=== PATIENT | female | born 1985 | race Caucasian/White ===

== ENCOUNTER 2016-07-25 20:04 | Emergency (ER) | payer BC ==
[2016-07-25 20:20] VITALS: RESP 22
[2016-07-25] MEDS ORDERED: ONDANSETRON 4 MG/2 ML VIAL IVP ONE (20:22)
[2016-07-25] MEDS ORDERED: KETOROLAC 30 MG/1 ML VIAL IVP ONE (20:22)
[2016-07-25] MEDS ORDERED: Sodium Chloride 0.9% 1,000 ML PRIMARY IV ONE (20:22)
--- NOTE | 2016-07-25 20:28 | PDOC ---
Gen Adult / Medical Screen HPI - General Chief Complaint: General Medical Stated Complaint: Persistant Cough/Sore Throat Date Seen by Provider: 07/25/16 Time Seen by Provider: 20:24 Source: POSITIVE: Patient Exam Limitations: POSITIVE: No limitations Nurse's Notes Reviewed & Considered: Yes - Indicators Temperature Between 95 and 101 Degrees: Yes Respirations Between 12 and 20: Yes Blood Pressure Between 100-165 (sys) and 60-100 (hill): Yes Pulse Range Between 60-105 (100 for age > 60 years): No (115) Severe Pain (Greater than 5/10 Reported): No Chest or Abdominal Pain: No Inability to Walk: No Pt Reports Active High Risk Cond. (TB/Hepatitis/HIV/Chemo): No Abnormal Mental Status: No - History of Present Illness Initial Comments: The patient comes in today with chief complaint of sore throat, cough, chills, runny nose, and shortness of breath. She did have an episode of diarrhea yesterday. She had an episode of emesis earlier today. She states she had to make herself follow-up because of her nausea. She states she slept from 10 AM until 6 PM today and still feels exhausted. Body Location Affected: REPORTS: Chest Timing: REPORTS: Upon Awakening, Getting Worse Duration: <24 hours Similar Symptoms Previously: No Recent Care Received: REPORTS: Denies Any Prior Injuries Related to Current Complaint?: No - Patient Allergies Allergies/Adverse Reactions: Allergies Allergy/AdvReac Type Severity Reaction Status Date / Time No Known Allergies Allergy Verified 07/25/16 20:11 Past Medical History - heen HEENT History: Denies History Cardiovascular History: Denies History Respiratory History: Denies History Gastrointestinal History: Denies History Genitourinary History: Denies History Endocrine History: Denies History Musculoskeletal History: Denies History Prosthesis or Implant: No Neurological History: Denies History Blood Disorders: Denies History Psychiatric History: Depression History of Sexually Transmitted Diseases: No Female Reproductive History: Denies History Obstetrical History: Delivery Cancer History: Denies History In Past Year Been Physically Harmed or Verbally Threatened: No History of MDRO: No History of Other Communicable Diseases: No Tobacco Use: Never Smoker Alcohol Use: Rarely Substance Use Type: None Previous Surgical History: Yes Type / Date of Surgery: x2 Anesthesia Reactions: No Malignant Hyperthermia: No Significant Family History: Cancer ROS - Limitations ROS Limitations: No Limitations Constitution: REPORTS: Chills, Fever, Diaphoresis Cardiovascular: REPORTS: Heart Racing Respiratory: REPORTS: Cough Non Productive, Shortness Of Breath Neurological: REPORTS: Headache Gastrointestinal: REPORTS: Abdominal Pain, Nausea, Vomitting, Diarrhea Endocrine: REPORTS: Fatigue Musculoskeletal: REPORTS: Muscle Aches Genitourinary: REPORTS: Denies Symptoms Eyes: REPORTS: Itching Eyes, Eye Drainage ENT: REPORTS: Congestion, Nasal Drainage, Sore Throat Skin: REPORTS: Denies Skin Symptoms Lympathic: REPORTS: Swollen Glands (Of her neck) Immunologic: POSITIVE: Denies Symptoms Psychiatric: POSITIVE: Denies Psych Symptoms Gen Adult/Medical Screen Exam - General Appearance General Appearance: POSITIVE: Alert, No Evidence of Trauma, Moderate Distress - HEENT HEENT: POSITIVE: Head Inspection Nml, Eyes Inspection Nml, Nose Inspection Nml, Oral/Dental Inspect. Nml, PERRL, EOMI, Pharyngeal Erythema, Pharyngeal Exudate, Clear Nasal Drainage - Pupils Pupil Size: 4 mm: Bilateral - Neck Neck: POSITIVE: Thyroid Normal, Lymphadenopathy - Respiratory Respiratory: POSITIVE: No Respiratory Distress, Breath Sounds Normal, Chest Non- Tender - Cardiovascular Cardiovascular: POSITIVE: No Murmur, No Gallop, PMI Normal, Tachycardia - Abdomen Abdomen: Soft: (All Quadrants), Normal Bowel Sounds: (All Quadrants), Denies Tenderness: (All Quadrants) - Back Back: POSITIVE: Normal Inspection - Neurological / Psychological Mental Status: POSITIVE: Mood Normal, Affect Normal Orientation: POSITIVE: Oriented x 3 - Skin Skin: POSITIVE: Normal Color, Warm, Dry, No Rash - Extremities Extremity: Non-Tender: (All Extremities), Normal ROM: (All Extremities), Normal Inspection: (All Extremities) Procedures - Laceration/Wound Repair Did patient have a laceration repair: No Gen Adlt/Medical Scrn Progress - Results Reviewed by me Xrays/CTs/US Reviewed by me: Yes Discussed with Radiologist: No Lab Results Reviewed: Yes Lab Results:: Laboratory Results 07/25/16 Range/Units 20:49 WBC 26.73 H (4.8-10.8) 10^3/uL RBC 4.96 (4.20-5.40) 10^6/uL Hgb 14.3 (12.0-16.0) g/dL Hct 41.0 (37.0-47.0) % MCV 82.7 (81-99) FL MCH 28.8 (27-31) PG MCHC 34.9 (33-37) g/dL RDW Std Deviation 37.8 L (39-50) fL RDW Coeff of Paco 12.8 (11.5-14.5) % Plt Count 283 (140-350) 10*3/uL MPV 10.9 (7.4-12.2) FL Immature Gran % (Auto) 0.3 (0-5) % Neut % (Auto) 91.4 H (50-80) % Lymph % (Auto) 4.2 L (10-50) % [place] % (Auto) 4.1 L (5-15) % Eos % (Auto) 0 (0-8) % Baso % (Auto) 0 (0-1) % Immature Gran # (Auto) 0.09 10*3/UL Neut # (Auto) 24.41 10*3/UL Lymph # (Auto) 1.12 10*3/uL [place] # (Auto) 1.10 H (0.3-0.8) 10*3/UL Eos # (Auto) 0 10*3/UL Baso # (Auto) 0.01 10*3/UL WBC Morphology Comment See comments (NORM) Plt Morphology Comment Normal morphology (NORM) RBC Morph Comment Normal morphology (NORM) Sodium 131 L (135-145) meq/L Potassium 3.7 L (3.8-5.2) meq/L Chloride 101 (98-112) meq/L Carbon Dioxide 20 L (23-33) meq/L Anion Gap 10 (5-20) BUN 8 (7-22) mg/dL Creatinine 0.6 (0.50-1.20) mg/dL Estimated GFR > 60 (>60 ml/min/1.73m(2)) BUN/Creatinine Ratio 13.33 (6-20) Glucose 113 H (78-110) mg/dL Calculated Osmolality 270.0 (267-292) mOsm/kg Lactic Acid 1.1 (0.70-2.10) MMOL/L Calcium 9.0 (8.7-10.7) mg/dL Magnesium 1.5 L (1.6-2.4) mg/dL Total Bilirubin 0.7 (0.3-1.2) mg/dL AST 18 (8-39) IU/L ALT 26 (9-52) IU/L Alkaline Phosphatase 99 (38-126) IU/L Total Protein 7.6 (6.1-8.0) g/dL Albumin 4.0 (3.5-4.8) g/dL Globulin 3.6 (2.50-4.10) g/dL Albumin/Globulin Ratio 1.10 L (1.3-2.0) mg/g Monoscreen Negative (NEG) - Patient's Progress Pain Medication Addressed: POSITIVE: Yes Re-Examine Time: 22:09 Status: POSITIVE: Improved MDM / ED Course: Patient was examined, an IV started, blood drawn and sent to the lab for studies , chest x-ray was obtained. Patient received a liter of normal saline, Toradol , Zofran, Bicillin, and Tylenol. Her fever improved and her body aches improved. Findings: White count is elevated greater than 26, compensated metabolic panel is unremarkable, rapid strep is positive, Cidra and influenza are negative, chest x-ray shows no acute cardiopulmonary decompensation per my interpretation. Assessment: Strep a pharyngitis Plan: Discharge home, Tylenol and ibuprofen alternated every 3 hours, saltwater gargles, may return to work when no fevers for 48 hours. - Consult Counseled: POSITIVE: Patient, RE: Lab Results, RE: Radiology Results, RE: DX Patient Care Time - Estimated PCT Patient Care Time (In Minutes): 30 Vital Signs - Recent Vital Signs Vital Signs: Vital Signs (Last 8 hours) Temp Pulse Resp BP Pulse Ox 07/25/16 21:41 103.3 F H 07/25/16 20:07 101.5 F H 126 H 22 127/86 93 - VS Reviewed Vital Signs Reviewed: Yes Discharge Clinical Impression: Acute streptococcal pharyngitis Discharge Disposition: Discharged to Home Condition: Stable Patient Instructions Given at Discharge: Strep Throat (ED)
[2016-07-25] MEDS ORDERED: PENICILLIN G 1,200,000 UNIT/2 ML SYRINGE IM ONE (20:33)
[2016-07-25 20:56] LABS: BASOPHILS # (AUTO) 0.01 10*3/UL; BASOPHILS % (AUTO) 0 % (0-1); EOSINOPHILS # (AUTO) 0 10*3/UL; EOSINOPHILS % (AUTO) 0 % (0-8); HEMOGLOBIN 14.3 g/dL (12.0-16.0); LYMPHOCYTES # (AUTO) 1.12 10*3/uL; MEAN CORPUSCULAR HEMOGLOBIN 28.8 PG (27-31); MEAN CORPUSCULAR HGB CONC 34.9 g/dL (33-37); MEAN CORPUSCULAR VOLUME 82.7 FL (81-99); MEAN PLATELET VOLUME 10.9 FL (7.4-12.2); MONOCYTES % (AUTO) 4.1 % (5-15); NEUTROPHILS # (AUTO) 24.41 10*3/UL; NEUTROPHILS % (AUTO) 91.4 % (50-80); RED BLOOD COUNT 4.96 10^6/uL (4.20-5.40)
[2016-07-25] MEDS ORDERED: Prometh/Codeine Liquid 10/6.25 MG/5 ML ORAL.SYRIN PO ONE (20:58)
[2016-07-25] MEDS ORDERED: ACETAMINOPHEN 325 MG TABLET PO ONE (20:58)
[2016-07-25] MEDS ORDERED: ACETAMINOPHEN 500 MG TABLET PO ONE ×2 (21:00→21:03)
[2016-07-25 21:03] LABS: BLOOD UREA NITROGEN 8 mg/dL (7-22); BUN/CREATININE RATIO 13.33 (6-20); EST GLOMERULAR FILTRATION > 60 (>60 ml/min/1.73m(2)); MAGNESIUM 1.5 mg/dL (1.6-2.4)
[2016-07-25 21:23] LABS: PLATELET MORPHOLOGY COMMENT NORMAL MORPHOLOGY (NORM); RBC MORPHOLOGY COMMENT NORMAL MORPHOLOGY (NORM); WBC MORPHOLOGY COMMENT SEE COMMENTS (NORM)
[2016-07-25 22:16] LABS: CLARITY,URINE CLEAR (CLEAR); COLOR,URINE YELLOW; GLUCOSE, URINE (UA) NEGATIVE (NEG); PH,URINE 5.5 (5.0-8.5); PROTEIN,URINE NEGATIVE (NEG); URINE SAMPLE TYPE CLEAN CATCH URINE
[2016-07-25 22:17] LABS: BACTERIA,URINE RARE; BILIRUBIN,URINE NEGATIVE (NEG); NITRATE,URINE NEGATIVE (NEG); OCCULT BLOOD,URINE SMALL (NEG); SQUAMOUS EPITHELIAL CELL,UR RARE; UROBILINOGEN,URINE 0.2 EU/dL (0.2)
[2016-07-25 22:42] VITALS: TEMP 98.2
--- NOTE | 2016-07-26 09:43 | DI ---
PA /LATERAL CHEST X-RAY, 07/25/2016 8:22 PM : Clinical History: Cough and fever Previous Exam: None at this facility. There is no acute soft tissue or bony abnormality. Heart size is normal. Lungs are clear. Mediastinal structures are normal. There are no pulmonary nodules. IMPRESSION: Normal chest x-ray.
== END 2016-07-25 22:26 | disposition home or self-care (01) ==
LOC: ER 20:04
DX: J02.0 Streptococcal pharyngitis (principal); R06.02 Shortness of breath; R19.7 Diarrhea, unspecified; R11.2 Nausea with vomiting, unspecified; R05 Cough
CPT/HCPCS: 36415; 71020; 80053; 81001; 81003; 83605; 83735; 85025; 86308; 87802; 87804; 96361; 96372; 96374; 96375; 99283 ×2; J0561; J1885; J2405; J7030

== ENCOUNTER 2017-07-27 05:57 | Inpatient (IN) ==
[2017-07-27] MEDS ORDERED: Famotidine Inj 20 MG in Normal Saline Flush 10 ML IVP ONE (06:07)
[2017-07-27] MEDS ORDERED: CITRIC ACID/SODIUM CITRATE 30 ML CUP PO ONE (06:07)
[2017-07-27] MEDS ORDERED: Metoclopramide Inj 10 MG/2 ML VIAL IV ONE (06:07)
[2017-07-27] MEDS ORDERED: NORMAL SALINE 10 ML SYRINGE FLUSH IVP PRN ×2 (06:07→07:15)
[2017-07-27] MEDS ORDERED: Lactated Ringers 1,000 ML PRIMARY IV ONE ×2 (06:07→08:18)
[2017-07-27] MEDS ORDERED: LIDOCAINE HCL 2 % 10 ML JELLY URO-JECT TOPICAL PRN (06:07)
[2017-07-27] MEDS ORDERED: LIDOCAINE W/ SODIUM BICARB 0.5 ML SYR SUBD PRN ×2 (06:07→07:15)
[2017-07-27] MEDS ORDERED: CefOXitin Inj 2 GM in Sodium Chloride 0.9% 100 ML IV ONE (06:07)
[2017-07-27] MEDS ORDERED: Lactated Ringers 1,000 ML PRIMARY IV SCH ×2 (06:15→07:15)
[2017-07-27] MEDS ORDERED: Oxytocin 20 Units + LR 20 UNIT/1,000 ML BAG IV SCH ×2 (06:15→10:36)
[2017-07-27 06:57] LABS: Hematocrit [HCT] 36.5 % (37.0-47.0); Hemoglobin [HGB] 12.1 g/dL (12.0-16.0); MEAN CORPUSCULAR HEMOGLOBIN 26.5 PG (27-31); MEAN CORPUSCULAR HGB CONC 33.2 g/dL (33-37); MEAN CORPUSCULAR VOLUME 79.9 FL (81-99); MEAN PLATELET VOLUME 10.9 FL (7.4-12.2); RED BLOOD COUNT 4.57 10^6/uL (4.20-5.40)
[2017-07-27] MEDS ORDERED: PROMETHAZINE 25 MG/1 ML VIAL IM PRN (07:15)
[2017-07-27] MEDS ORDERED: HYDROmorphone 2 MG/1 ML IVP PRN (07:15)
[2017-07-27] MEDS ORDERED: fentaNYL Inj 100 MCG/2 ML VIAL IVP PRN (07:15)
[2017-07-27] MEDS ORDERED: MORPHINE SULFATE/PF 10 MG/10 ML AMPULE ONE (07:19)
[2017-07-27] MEDS ORDERED: ePHEDrine Inj 50 MG/ML AMP ONE (07:21)
[2017-07-27] MEDS ORDERED: OXYTOCIN 10 UNIT/1 ML ONE (07:21)
--- NOTE | 2017-07-27 09:56 | CRNA.PROCE ---
Central Neuraxis Block Placemt - - Safety Measures: Time Out Taken, Site Verified - - Type of Block: Subarachnoid Reason for Block: Surgical Moniters Used During Block: EKG, SPO2, NIBP (SAB placed in OR prior to procedure ) Skin Prep Used: Betadine Draped: Yes Skin Infiltration - Enter Amount Used in Comment Field: 1% Xylocaine (mL): Yes ( wheal) Spinal Needle Used: 22 Radha 120 mm (At approx L3-4, body habitus makes landmarks difficult to asses. 1st pass with introducer and 25ga radha. Bone encountered. Switched to a 22sprotte and clear csf obtained on 2nd pass.) Local Anesthetic - Enter Amount Used in Comment Field: 0.75 % Bupivacaine with Dextrose (ml): Yes (15mg) Additive Used - Enter Amount Used in Comment Field: Preservative Free Morphine ( mg): Yes (0.15) Anesthesia Time - Other Weight: 122.47 kg Height: 5 ft 5 in Body Mass Index (BMI): 44.9
--- NOTE | 2017-07-27 09:57 | CRNA.PROGR ---
Anesthesia Recovery Phase I - Post Anesthesia Evaluation Patient's Condition on Arrival in Phase I: Stable Pain Level: 0
--- NOTE | 2017-07-27 09:58 | CRNA.PROGR ---
Anesthesia Time - - Start date: 07/27/17 End date: 07/27/17 - Procedure/Recovery Time Anesthesia : Time In: 07:51 Anesthesia : Time Out: 09:42 Anesthesia : Total Time: 111 - Total Anesthesia Time Total Anesthesia Time (minutes): 111 - Other Weight: 122.47 kg Height: 5 ft 5 in Body Mass Index (BMI): 44.9 Physical Status: P3 Anesthesia Type: Spinal Block (repeat c section)
--- NOTE | 2017-07-27 10:03 | OB.OP.NOTE ---
Operative Report Surgeon: Justus Ship Liner: Rashid Draper MD Anesthesia Type: Regional (With Duramorph) Anesthesia Provider: Mateusz Iniguez CRNA Surgery Date: 07/27/17 Preoperative Diagnosis: IUP 39 weeks, previous section 2, satisfied parity, obesity. Patient desires repeat section and bilateral tubal ligation Postoperative Diagnosis: Same Procedure: Repeat low transverse section. Bilateral tubal ligation using Filshie clips Estimated Blood Loss (mL): 600 Fluids: 3000 cc LR and Pitocin. Mefoxin 2 g IV preoperatively. Urine 300 mL clear yellow Complications: None apparent Findings at Surgery: Normal ovaries and fallopian tube. Male infant with Apgars 9 and 10 weighing 7 lbs. 2 oz. Arterial blood gas showed a pH of 7.379, PCO2 37.1, base excess of -3, HCO3 21.9 Indications for the Procedure: The patient is a 31-year-old at 39 weeks gestation with history of C- section 2 who desires repeat section and bilateral tubal ligation. Patient has a posterior placenta Description of Procedure: The patient was taken to the operating room after the risks, benefits, alternatives and indication of a repeat section and bilateral tubal ligation were discussed with patient in detail and consent forms were signed previously. The morning of the procedure the patient still wanted the repeat section and the bilateral tubal ligation. The patient had satisfied parity. The patient was brought to the operating room. The patient underwent spinal anesthesia with Duramorph and uncomplicated fashion. The patient was then placed in the dorsal supine position with a leftward tilt. Reinoso catheter was placed sterilely. SCDs were placed on both lower legs. Attention was turned to the patient's abdomen and the patient's previous Pfannenstiel skin incision was in the crease of her pannus fold. Therefore I decided that I should make my Pfannenstiel incision slightly superior to that. I demarcated the area that I wanted to make my incision and then I actually taped the patient's abdomen up carefully to elevate the patient's pannus. Patient was then prepped and draped sterilely. The patient was then tested and anesthesia was found to be excellent. A Pfannenstiel skin incision was made superior to the old Pfannenstiel incision by several centimeters. I worked my way through the subcutaneous tissue which was about 8-10 cm in depth. The fascia was then nicked in the midline and extended bilaterally using the Bovie and elevating the fascia off of the rectus muscles using the Yankauer as a retractor. [place] clamps were placed on the fascia superiorly on either side of the midline and the rectus muscles were dissected off both bluntly and with the Bovie. The same was done on the inferior aspect of the fascia with cokers on either side of the midline and the rectus muscles were dissected off both bluntly and with the Bovie. On the patient's left side there was some scarring laterally between the fascia and the rectus muscles and the epigastric vessel was actually incised and bleeding occurred. Initial Bovie did not allow for hemostasis and then I placed a [id number] suture around the superior and inferior aspect of the epigastric vessel and there was good hemostasis. The vessel did not appear to retract during this process. After the 2 weohsn-ei-esbif sutures with 0 Vicryl suture was applied, there was good hemostasis and no bleeding. There was some scarring in the midline but this was taken down placing my digits underneath the scar tissue and Bovie unit. We were then able to enter the peritoneum picking up the peritoneum with Fatuma's and then actually entering bluntly. The peritoneum was then stretched. A hand was placed intra-abdominally along the uterus and there were no lesions from the anterior abdominal wall. The Tomas retractor was placed intra-abdominally and set in place. The bladder reflection was noted and I made a low transverse uterine incision above the bladder reflection or superior to the bladder reflection in an arc. The membranes were identified and then the membranes were ruptured and there was clear amniotic fluid. The uterine incision was extended initially bluntly and then with bandage scissors. I then placed my hand intrauterine along the baby's head since the baby was in the cephalic presentation and delivered the baby's head and the mouth and nose were bulb suctioned. A body cord was noted but there was not a nuchal cord. The posterior shoulder was then delivered with fundal pressure. Then the infant was delivered. Delayed cord clamping of about 30 seconds was allowed for. The cord was then clamped and cut and the baby was handed off to the waiting nurses and Dr. Issa. A section of cord was obtained for cord gases and the results are above. Cord blood was then obtained. The placenta was removed with uterine massage and traction on the umbilical cord gently. Trailing membranes were removed with a ring forcep. The uterus was then exteriorized and the uterine cavity was cleared of all clot and debris 3 times. There was good hemostasis. The uterine incision was then closed with 0 Vicryl suture in a running locking fashion starting from the left side and working to the right side. There were not any extensions that were significant of the uterine incision. There was one area with slight bleeding in the middle of the incision and a xlyldy-rw-icdej suture was placed and hemostasis was allow for. The ovaries and fallopian tubes were identified. There were significant vessels running along the fallopian tube so I decided to use Filshie clips instead of a partial salpingectomy or complete salpingectomy. Filshie clip was placed on the right fallopian tube about 3 cm from the cornua and a Filshie clip was placed on the left fallopian tube about 3-4 cm from the cornua secondary to the vascularity along the fallopian tube. The uterine incision was examined again and there was good hemostasis. Irrigation posterior to the uterus was completed and suctioned. Was clear. The uterus was then placed back in the abdomen ensuring that the Filshie clips date of place and there was good hemostasis. The right gutter was irrigated and suctioned. The left gutter was then irrigated and then suctioned. The uterine incision was examined again and irrigated and then suctioned and there appeared to be good hemostasis of the uterine incision. There was also good approximation of the uterine incision. The peritoneum was then closed using 3-0 Vicryl suture. A FISH retractor had to be used to retract the omentum that was adhesed to the peritoneum. Also there was one area of omentum that was bovied to allow the omentum to be free instead of adhesed to the other side with the possibility of her hernia through the omentum. There were no significant vessels in this area that was bovied to allow the omentum to be free. There was no bowel. The peritoneum was then closed methodically. The fascia and subfascial area was then irrigated. The area on the patient's left side that bled when the epigastric vessel was disturbed was completely hemostatic. Irrigation was completed and then there was good hemostasis noted again. Looped 0 PDS was then used to close the fascia starting on the patient's left side and working to the patient's right side. The angle of the fascia the patient's right side was grasped with a Marge initially to identify it as the fascia was closed. The looped 0 PDS closed the fascia and there appeared to be good hemostasis and a good closure of the fascia with both layers of fascia sutured. The subcutaneous tissue was then irrigated and a few areas were bovied. Subcutaneous tissue was closed in 2 layers using 3-0 Vicryl suture. Secondary to the patient's obesity, I decided to close the skin using metal lucian to allow for some drainage of the subcutaneous area. Not blood but just drainage. A Silverlon dressing was applied over the incision and then an ABD had and then the dressing was taped with paper tape. The drape was then removed and I place new gloves and then the uterus was expressed of any clot and debris with some fundal pressure and then 2 digits with sterile glove in the patient's vagina. The cervix was noted to be just a fingertip. The fundus was firm with massage. Patient tolerated this very well. The Reinoso catheter was replaced because it had appeared that urine leaked around the Reinoso catheter. Her was 300 mL of clear yellow urine but the Reinoso catheter was replaced. The patient was brought to the PACU in stable condition. Please see my orders. Plan: Please see my orders.
[2017-07-27] MEDS ORDERED: CALCIUM CARBONATE 500 MG (TUMS) CHEWABLE TABLET PO PRN (10:36)
[2017-07-27] MEDS ORDERED: Nalbuphine Inj 20 MG/ML Ampule IVP PRN (10:36)
[2017-07-27] MEDS ORDERED: LANOLIN HPA 40 GM TUBE TOPICAL PRN (10:36)
[2017-07-27] MEDS ORDERED: DIPH,PERTUSS,TET(ADACEL) VAC/PF 0.5 ML (Tdap) IM ONE (10:36)
[2017-07-27] MEDS ORDERED: Naloxone Inj 0.01 MG, Sodium Chloride 0.9% vial 1 ML IVP PRN ×2 (10:36)
[2017-07-27] MEDS ORDERED: Famotidine Inj 20 MG in Normal Saline Flush 10 ML IVP PRN (10:36)
[2017-07-27] MEDS ORDERED: diphenhydrAMINE 50 MG/1 ML VIAL IV PRN (10:36)
[2017-07-27] MEDS ORDERED: ONDANSETRON 4 MG/2 ML VIAL IVP PRN (10:36)
[2017-07-27] MEDS ORDERED: diphenhydrAMINE 25 MG CAPSULE PO PRN (10:36)
[2017-07-27] MEDS: NORMAL SALINE 10 ML SYRINGE FLUSH IVP PRN ×2 (11:50→18:04)
[2017-07-27] MEDS: KETOROLAC 15 MG/1 ML VIAL IVP SCH ×2 (11:50→18:04)
--- NOTE | 2017-07-27 16:35 | OB.PROGRES ---
Subjective Post Op Day: 0 Pain Management: spinal with Duramorph Reinoso Catheter: Yes Flatus: No Diet: Regular Feeding Method: Exculsively Ambulating: Yes Concerns / Additional Information: The patient has been up but not really ambulating yet. Objective - General General Appearance: POSITIVE: No Acute Distress, Cooperative Assesstment / Plan Assessment / Plan: Post op day #0 status post repeat section and bilateral tubal ligation using Filshie clips. The patient's vitals are good. She has not been tachycardic. Her urine output is 40 mL/h. Most likely she is third spacing some fluid. The urine is yellow and clear. Plan: Continue to observe the patient If the patient is doing well tomorrow morning, I will start the patient on Lovenox 60 mg subcutaneous twice a day during the hospitalization along with her SCDs. This is to help prevent SCDs the patient's BMI was greater than 40 at the new OB visit. I discussed with the patient and the patient expressed understanding.
[2017-07-27] MEDS: D5-LR 1,000 ML PRIMARY IV SCH (18:01)
[2017-07-28] MEDS: KETOROLAC 15 MG/1 ML VIAL IVP SCH ×2 (05:04)
[2017-07-28 05:23] LABS: Hematocrit [HCT] 32.9 % (37.0-47.0); Hemoglobin [HGB] 10.6 g/dL (12.0-16.0); MEAN CORPUSCULAR HEMOGLOBIN 26.2 PG (27-31); MEAN CORPUSCULAR HGB CONC 32.2 g/dL (33-37); MEAN CORPUSCULAR VOLUME 81.4 FL (81-99); MEAN PLATELET VOLUME 11.2 FL (7.4-12.2); RED BLOOD COUNT 4.04 10^6/uL (4.20-5.40)
[2017-07-28] MEDS: D5-LR 1,000 ML PRIMARY IV SCH (07:14)
[2017-07-28] MEDS: Prenatal Multivitamin Tab 1 TAB TAB PO SCH (09:06)
[2017-07-28] MEDS: DOCUSATE 100 MG CAPSULE PO SCH ×2 (09:06→21:11)
--- NOTE | 2017-07-28 09:41 | OB.PROGRES ---
Subjective Post Op Day: 1 Pain Management: IV Toradol and Duramorph from spinal yesterday Reinoso Catheter: No Diet: Regular [place] Feeding Method: / Bottle Ambulating: Yes Concerns / Additional Information: Positive flatus. Patient feels okay. Objective - General General Appearance: POSITIVE: No Acute Distress, Cooperative - Cardiovacular Cardiovascular Exam: POSITIVE: RRR Edema: +1 Pedal Edema Extremities: Negative Carlotta's - Bilaterally - Respiratory Respiratory Exam: POSITIVE: Clear to Auscultation - Bilaterally - Abdomen Bowel Sounds: Present Abdominal Wound Assessment: Silverlone Dressing, Well Approximated - Fundus/Lochia/Perineum Uterus Consistency: Firm Assesstment / Plan Assessment / Plan: Assessment: Postoperative day #1 status post repeat section and bilateral tubal ligation using Filshie clip. Patient has BMI of 44 and BMI at the new OB was 41. With the patient having a section, the patient is at increased risk for DVT. The patient is receiving sequential compression devices but I will also order Lovenox. Lovenox falling be given while the patient is in the hospital. Postop H&H 10 and 32 and platelets are normal. Plan: Continue to observe Lovenox 60 mg subcutaneous twice a day while in the hospital
[2017-07-28] MEDS ORDERED: ENOXAPARIN SODIUM 60 MG/0.6 ML SYRINGE SUBCUT SCH (09:45)
[2017-07-28] MEDS: oxyCODONE-ACETAMINOPHEN 5-325 TAB PO PRN ×4 (10:35→21:33)
[2017-07-28] MEDS: ENOXAPARIN SODIUM 60 MG/0.6 ML SYRINGE SUBCUT SCH ×2 (11:09→23:48)
[2017-07-28] MEDS: IBUPROFEN 800 MG TABLET PO PRN ×2 (11:10→21:34)
--- NOTE | 2017-07-28 13:12 | CRNA.PROGR ---
Anesthesia Note - Progress Notes Anesthesia Progress Note: Sitting up in bed holding her baby and visiting with spouse. Discussed anesthetic course and she has no questions or concerns regarding her anesthetic care. Laboratory Results 07/28/17 Range/Units 04:50 WBC 11.35 H (4.8-10.8) 10^3/uL RBC 4.04 L (4.20-5.40) 10^6/uL Hgb 10.6 L (12.0-16.0) g/dL Hct 32.9 L (37.0-47.0) % MCV 81.4 (81-99) FL MCH 26.2 L (27-31) PG MCHC 32.2 L (33-37) g/dL RDW Std Deviation 40.5 (39-50) fL RDW Coeff of Paco 14.0 (11.5-14.5) % Plt Count 205 (140-350) 10*3/uL MPV 11.2 (7.4-12.2) FL Vital Signs (24 hrs) Temp Pulse Pulse Resp BP BP Pulse Ox 07/28/17 10:08 97.8 F 20 119/73 94 07/28/17 05:00 80 20 109/68 94 07/28/17 03:30 94 07/28/17 01:00 98.2 F 89 18 110/64 95 07/27/17 21:00 97.6 F 87 20 110/77 96 07/27/17 20:10 78 07/27/17 15:30 97.9 F 76 16 108/79 98
[2017-07-29] MEDS: oxyCODONE-ACETAMINOPHEN 5-325 TAB PO PRN ×2 (03:55→07:18)
[2017-07-29 03:58] VITALS: RESP 16
[2017-07-29] MEDS: IBUPROFEN 800 MG TABLET PO PRN (07:17)
[2017-07-29] MEDS: DOCUSATE 100 MG CAPSULE PO SCH (08:34)
[2017-07-29] MEDS: Prenatal Multivitamin Tab 1 TAB TAB PO SCH (08:34)
[2017-07-29 09:20] VITALS: TEMP 36.8; O2SAT 96
[2017-07-29 10:18] VITALS: BP 127/84
--- NOTE | 2017-07-29 10:44 | OB.PROGRES ---
Subjective Post Op Day: 2 Pain Management: PO Reinoso Catheter: No Flatus: Yes Diet: Regular Feeding Method: / Bottle Ambulating: Yes Concerns / Additional Information: The patient states she feels well. No nausea. Percocet helps her pain. She is pleased. The patient would like to go home. Objective - General General Appearance: POSITIVE: No Acute Distress, Cooperative - Cardiovacular Cardiovascular Exam: POSITIVE: RRR Edema: +1 Pedal Edema Extremities: Negative Carlotta's - Bilaterally - Respiratory Respiratory Exam: POSITIVE: Clear to Auscultation - Bilaterally - Abdomen Bowel Sounds: Present Abdominal Wound Assessment: Silverlone Dressing, Well Approximated Other Abdominal Exam Details: Slight bruising superior to the incision in the midline. Positive bruising right lateral abdominal wall-sites of Lovenox injection Assesstment / Plan Assessment / Plan: Assessment: Postoperative day #2 status post repeat transverse section and bilateral tubal ligation using Filshie clips. Patient's postop H&H is 10 and 32. The patient is at slight increased risk for DVT and patient has been receiving SCDs plus Lovenox 60 mg subcutaneous twice a day. The patient is doing well and would like to go home. Plan: Discharge from hospital today Discharge medications as follows: Oxycodone/Tylenol 5/325 one to 2 tablets by mouth every 6 hours when necessary pain #30 and no refills Ibuprofen 800 mg 1 tablet by mouth with food or milk 3 times a day for 5 days then 3 times a day as needed. Colace 100 mg capsule 1 capsule by mouth twice a day when necessary constipation Multivitamin 1 tablet by mouth daily The patient should return next week to have Silverlon dressing removed and half- inch Steri-Strips placed over incision. This appointment will be a nurse's visit on: Next Tuesday or Tuesday. The patient should be given the usual precautions. If the patient Silverlon dressing starts to peel off, the patient should have the entire dressing removed. The patient may present to labor and delivery for this or contact the clinic.
--- NOTE | 2017-07-29 10:55 | DCSUMMARY ---
Hospitalization Summary Admit Date: 07/27/17 Discharge Date: 07/29/17 Primary Diagnosis:: IUP 39 weeks with previous section 2 Secondary Diagnosis:: Satisfied parity with desired permanent sterilization BMI of 44 Primary Surgery and Date: 07/27/2017. Repeat low transverse section and bilateral tubal ligation using Filshie clips Delivery Type: Hospital Course: Patient was admitted on 07/27/2017 and underwent repeat section and bilateral tubal ligation using Filshie clips. The patient was started on Lovenox 24 hours after surgery at the dose of 60 mg subcutaneous twice a day. On postoperative day #2, the patient was doing well and desiring to go home. She was breast and supplementing with bottle feeding. The patient's postop H&H was 10 and 32. Assessment: Postoperative day #2 status post repeat transverse section and bilateral tubal ligation using Filshie clips. Patient's postop H&H is 10 and 32. The patient is at slight increased risk for DVT and patient has been receiving SCDs plus Lovenox 60 mg subcutaneous twice a day. The patient is doing well and would like to go home. Plan: Discharge from hospital today Discharge medications as follows: Oxycodone/Tylenol 5/325 one to 2 tablets by mouth every 6 hours when necessary pain #30 and no refills Ibuprofen 800 mg 1 tablet by mouth with food or milk 3 times a day for 5 days then 3 times a day as needed. Colace 100 mg capsule 1 capsule by mouth twice a day when necessary constipation Multivitamin 1 tablet by mouth daily The patient should return next week to have Silverlon dressing removed and half- inch Steri-Strips placed over incision. This appointment will be a nurse's visit on: 08/02/2017 at 1430 hrs. The patient should be given the usual precautions. If the patient Silverlon dressing starts to peel off, the patient should have the entire dressing removed. The patient may present to labor and delivery for this or contact the clinic. / Postop Complications: No complications apparent. Complications: None apparent Exam - Vitals Vital Signs: Vital Signs Temperature 36.8 F Temperature Source Oral Pulse Rate [Apical] 92 Pulse Rate [Pulse Oximeter 92 Left] Pulse Rate 76 Respiratory Rate 16 Blood Pressure [Right Arm] 114/81 Blood Pressure [Left Arm] 127/84 Blood Pressure 111/80 Pulse Ox 96 Oxygen Flow Rate 1 Oxygen Delivery Method Room Air Height 5 ft 5 in Weight 270 lb
== END 2017-07-29 12:13 | disposition home or self-care (01) | DRG 766 ==
LOC: OBOR 05:57 → OBIP 14:17
PROVIDERS: ADMIT Obstetrics & Gynecology; ATTEND Obstetrics & Gynecology